=== PATIENT | male | born 1975 | race Caucasian/White ===

== ENCOUNTER 2016-12-05 11:00 | Observation (INO) | payer BC ==
[~2016-12-05] VITALS: Ht 185.4 cm; Wt 84.4 kg
--- NOTE | ~2016-12-05 | HP ---
PATIENT'S NAME: RAUL JONES [facility] AGE: 41 Y [address] ROOM: [place] [address] [place] [facility] [place]: 12/05/2016 History & Physical DISCHARGE DATE: FAMILY PHYSICIAN: Cassy Black MD ATTENDING PHYSICIAN: Howie Shepherd DATE OF SERVICE: CHIEF COMPLAINT: Right lower quadrant abdominal pain. HISTORY OF PRESENT ILLNESS: Mr. Jones is a 41-year-old gentleman who went to work yesterday in his usual state of health, but upon arriving home last evening noticed that he had a gut ache. He was able to eat supper. He went to bed around 9:00 p.m. and at 1:00 a.m., he woke up with right lower quadrant abdominal pain and vomiting. He thought maybe he was dehydrated secondary to the heat at work, but any time he tried to drink water he would vomit. He states that he had difficulty getting to sleep due to the discomfort. This morning he decided to go to the clinic to be evaluated. The patient states that his pain is in the right lower quadrant but will radiate across the abdomen slightly. He denies any diarrhea. No recent travel. Denies any one else in the family being sick. PAST MEDICAL HISTORY: ALLERGIES: HAD REACTION AN TO PENICILLIN. MEDICATIONS: No medications. ILLNESSES: No illnesses. PAST SURGICAL HISTORY: Operations: Shoulder, bilateral knees, and tonsillectomy. SOCIAL HISTORY: The patient is and lives in [place]. 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 He is a nonsmoker. He chews two cans of tobacco per week. He occasionally consumes alcohol and states that the last time was on November 19. FAMILY HISTORY: Mother is alive at the age of 58 and is overweight. Father is alive at the age of 63, and is diabetic. There is no family history of cancer. PATIENT'S NAME: RAUL JONES [facility] AGE: 41 Y [address] ROOM: [place] [address] [place] [facility] [place]: 12/05/2016 History & Physical DISCHARGE DATE: FAMILY PHYSICIAN: Cassy Black MD ATTENDING PHYSICIAN: Howie Shepherd REVIEW OF SYSTEMS: The patient states that prior to yesterday his appetite had been normal. He had been trying to lose weight and lost 27 pounds, which he has been able to maintain for several months now. No fevers, chills, or night sweats. No shortness of breath or cough. He states that he had a little bit of sinus drainage last evening, but he thought this was related to the vomiting. No prior issues with abdominal pain or change of bowel habits. No blood in his stool. He is having some difficulty voiding now due to the pain, but no prior problems. PHYSICAL EXAMINATION: VITAL SIGNS: Temperature is 98.2, blood pressure 125/66, pulse 59, respirations 16, and O2 saturations 98% on room air. GENERAL: A 41-year-old male, who is alert, pleasant, cooperative, and appears comfortable at rest, but appears uncomfortable when he is laughing due to pain in his abdomen. LUNGS: Clear. HEART: Regular. ABDOMEN: Positive bowel sounds. It is soft, with tenderness in the right lower quadrant at McBurney's point with guarding noted. Positive Rovsing sign. Positive psoas sign. EXTREMITIES: The patient appears to move all extremities equally. LABORATORY DATA: Laboratory work from [place] shows a white blood cell count of 17.5, hemoglobin 15.8, hematocrit 45.1, and platelets are 188,000. Sodium 139, potassium 4.1, BUN 14, creatinine 1.2, total bilirubin 0.9, alkaline phosphatase 40, AST 22, and ALT 18. ASSESSMENT: A 41-year-old male with right lower quadrant pain and vomiting with leukocytosis worrisome for acute appendicitis. PLAN: I discussed with the patient the pros and cons of doing a CT scan to further evaluate the abdomen. This was offered in [place], but the patient had declined. The patient states that his daughters have all been to the ER and had CT scans done and he did not want this done if not absolutely necessary. I discussed the reasons that his CT scan may help in the diagnosis. The CT could confirm the appendicitis, but also could rule out complications with an abscess or other etiologies such as diverticulitis, mesenteric adenitis, etc,. Discussed the options to proceed with laparoscopy with expected appendectomy. I discussed risks and benefits of the operation including risk of bleeding, risk of infection. Discussed the expectation that he would be ready to go PATIENT'S NAME: RAUL JONES [facility] AGE: 41 Y [address] ROOM: [id number] [place] [id number] [place] [facility] [place]: 12/05/2016 History & Physical DISCHARGE DATE: FAMILY PHYSICIAN: Cassy Black MD ATTENDING PHYSICIAN: Howie Shepherd home tomorrow. I also discussed the option of just treating this with IV antibiotics and see if he improves with that alone with the risk of recurrent issues and the need for either CT or surgery at that point in time. Dr. Shepherd then evaluated the patient and again discussed the pros and cons of CT versus proceeding to the operating room. Risks and benefits again were discussed. Ultimately, it was decided to go ahead and proceed to the operating room for a laparoscopic appendectomy. Risks and benefits were discussed by Dr. Shepherd including bleeding, infection, injury to other structures, heart problems, or lung problems, etc,. At this time, we will keep the patient n.p.o., and normal saline will run at 150 mL/h. I have ordered morphine for pain and Zofran for nausea. We will start Invanz 1 g IV, and plan to proceed this afternoon with removal of the appendix laparoscopically. Questions and concerns were addressed. Dr. Shepherd has evaluated the patient and is involved in assessment and plan, and is available for supervision. FLOYD WATSON PA-C FOR MD ASIYA NGUYỄN/pete /[id number] D: 123 T: 947 HISTORY & PHYSICAL
--- NOTE | ~2016-12-05 | OR ---
PATIENT'S NAME: RAUL JONES [facility] AGE: 41 Y [address] ROOM: [address] [address] [place] [facility] [place]: 12/05/2016 OR/Procedure Report DISCHARGE DATE: FAMILY PHYSICIAN: Cassy Black MD ATTENDING PHYSICIAN: Howie Shepherd SURGEON: Howie Shepherd MD PROJECT CONTROL MANAGER: Pj Sanchez, Student, M1. DATE OF PROCEDURE: 12/05/2016 PREOPERATIVE DIAGNOSIS: Acute appendicitis. POSTOPERATIVE DIAGNOSIS: Acute appendicitis. PROCEDURE: Laparoscopic appendectomy. FINDINGS: The patient had acutely inflamed appendix with early signs of necrosis, however, no perforation. ESTIMATED BLOOD LOSS: Less than 20 mL. COMPLICATIONS: None. INDICATIONS: The patient is a 41-year-old male who presented with abdominal pain. His signs and symptoms were consistent with appendicitis. We discussed appendectomy with the patient and the risks, benefits, and alternatives, and he elected to proceed. DESCRIPTION OF PROCEDURE: The patient was taken to the operating room. He was supine. He was given IV sedation. His abdomen was prepped with ChloraPrep and sterilely draped. Local anesthetic was infiltrated just inferior to the umbilicus. A transverse incision was created. The abdomen was elevated. Veress needle was inserted. Pneumoperitoneum was induced. Following this, a 5 mm trocar was inserted followed by insertion of the camera. There was no injury from initial trocar placement. Two more trocars were then positioned, a 5 mm suprapubic and a 12 mm left lower quadrant port. Skin overlying the peritoneum was first anesthetized prior to making the incisions. Both these trocars were inserted under direct visualization. The appendix was immediately visible in the right lower quadrant. It was adherent to the anterior abdominal wall. There were early signs of ischemia to this and necrosis, but no definite perforation. We mobilized the appendix, elevated this. A window was created at the base of the appendix. A laparoscopic stapler was then inserted across at the base of the appendix and fired. A second staple load was placed across the mesoappendix and fired. The appendix was placed in an EndoCatch bag and brought out through the left lower quadrant port site. The operative field was inspected, it appeared PATIENT'S NAME: RAUL JONES [facility] AGE: 41 Y [address] ROOM: [place] [address] [place] [facility] [place]: 12/05/2016 OR/Procedure Report DISCHARGE DATE: FAMILY PHYSICIAN: Cassy Black MD ATTENDING PHYSICIAN: Howie Shepherd hemostatic. The area was irrigated. Fluid was removed. The staple lines appeared intact. Pneumoperitoneum was released. The trocars were removed. The trocar sites appeared hemostatic. The fascia of the 12 mm port site was approximated with 0 Vicryl suture followed by skin closure of all 4 port sites with 4-0 Monocryl suture. Steri-Strips and sterile dressings were placed. The patient was extubated and sent to recovery in good condition. MD NEVIN NGUYỄNO/modl /[id number] d: 12/06/16 0121 t: 12/12/16 1944, OPERATIVE SUMMARY
--- NOTE | 2016-12-05 12:19 | NUR ---
Admission note: 41 yearl old male admitted for services of Dr. Shepherd. Patient is alert and oriented and c/o pain 8 on scale of 0-10. Patient reports about 0100 today he woke up and had pain in RLQ and vomited 3 times. Had some water about 0800 this am and a sip of soda at 1145. Patient is now NPO. Reports he took a stool softener this am.
--- NOTE | 2016-12-05 16:26 | NUR ---
Significant event: Patient to surgery for appendix removal.
--- NOTE | 2016-12-06 03:54 | NUR ---
Significant Event: Returned from surgery post laproscopic appendecomy at 1830. Sleeping for long periods tonight. Afebrile, all VSS. Bowel sounds rare to hypoactive x4 quadrants. Abdominal incision x3, dressing dry and intact. Motrin (600mg) given x2 last at 0306 and [place] (1 tab) given x2 last at 0033 for pain. Eating and drinking without N/V. Voiding well. Up in room and halls x4. PIV patent and saline locked. Home later today. Follow up:
--- NOTE | 2016-12-06 09:15 | NUR ---
Introduced self/role to patients and his Cristela, they live in [place]. Denied any barriers to going home or at home. He hopes to be released today. Added my name to his marker board, will continue to follow.
[2016-12-06] MEDS ORDERED: HYDROCODON-ACE1 EAC4 PO (09:46)
[2016-12-06] MEDS ORDERED: MOTRIN600 MG PO (09:47)
--- NOTE | 2016-12-06 13:15 | NUR ---
D: PATIENT VITAL SIGNS STABLE PATIENT AFEBRILE. PATIENT DRESSINGS TO ABDOMEN DRY AND INTACT WITH HYPOACTIVE BOWEL SOUNDS. PATIENT STATES THAT HE IS PASSING FLATUS AND DENIES ANY NAUSEA/VOMITING. PATIENT UP IN HALLS WITHOUT DIFFICULTY. DISCHARGE ORDER RECEIVED TO DISCHARGE PATIENT TO HOME WITH . I: DISCHARGE INSTRUCTIONS REVIEWED WITH PATIENT AND R: PATIENT AND DENY ANY QUESTIONS AND STATE UNDERSTANDING P: CONTINUE WITH DISCHARGE ORDERED DISMISSAL GOALS MET.
== END 2016-12-06 11:15 | disposition disaster alternative care site (69) ==
LOC: GMSU 11:49
PROVIDERS: ADMIT Surgery
PROC: 0DTJ4ZZ Resection of Appendix, Percutaneous Endoscopic Approach (ICD-10-PCS; principal; 2016-12-05)
DX: K35.80 Unspecified acute appendicitis (principal); Z88.0 Allergy status to penicillin; F17.220 Nicotine dependence, chewing tobacco, uncomplicated; Z98.890 Other specified postprocedural states
CPT/HCPCS: G0378; J1335; J2270; J3010; J7030